=== PATIENT | female | born 1990 | race Caucasian/White ===

== ENCOUNTER 2016-12-12 10:00 | Inpatient (IN) | payer OTHER ==
[~2016-12-12] VITALS: Ht 149.9 cm; Wt 56.7 kg
[2016-12-12] VITALS (9 sets, daily range): BP systolic 110–124; BP diastolic 60–75
[~2016-12-12 10:00] MED LIST: ESOM40CA PO; FLUO40CA9 PO; IV RINGERS,LACTATED 1000ML 1,000 ML IV SCH; LIDOCAINE 1% 1 ML SYRINGE. ID PRN; MORPHINE SULFATE 2 MG/ML DISP.SYRIN. IV PRN; ONDA4TAB7 PO; ONDANSETRON PF 4 MG/2 ML VIAL. IV PRN; PROCHLORPERAZINE 10 MG/2 ML VIAL. IV PRN; fentaNYL PF VIAL 100 MCG/2 ML VIAL IV PRN
[2016-12-12] MEDS ORDERED: SCOPOLAMINE 1.5MG PATCH. TD ONE ×2 (10:50→11:00)
[2016-12-12] MEDS ORDERED: BUPIVAC MPF-EPI 0.5%-1:200000 30 ML VIAL. ONE (10:51)
[2016-12-12] MEDS ORDERED: GLUCAGON,HUMAN RECOMBINANT 1 MG/ML VIAL. ONE (10:51)
[2016-12-12] MEDS ORDERED: SURGICEL HEMOSTAT 4X8 EACH. ONE (10:51)
[2016-12-12] MEDS ORDERED: IOHEXOL 300 MG/ML 50 ML VIAL. ONE (10:51)
[2016-12-12 11:05] LABS: BASO % 0 % (0-3); EOS % 1 % (0-3); HEMOGLOBIN 10.3 g/dL (12.0-15.5); LYMPH # 2.7 x10^3/uL (1.0-4.8); LYMPH % 21 % (24-48); MEAN CORPUSCULAR HEMOGLOBIN 24 pg (25-35); MEAN CORPUSCULAR HGB CONC 31 g/dL (31-37); MEAN CORPUSCULAR VOLUME 78 fL (79-100); MONO % 5 % (0-9); NEUT % 74 % (31-73); PLATELET COUNT 370 x10^3/uL (140-400); RED BLOOD COUNT 4.26 x10^6/uL (3.50-5.40); RED CELL DISTRIBUTION WIDTH 18.8 % (11.5-14.5)
[2016-12-12] MEDS ORDERED: MIDAZOLAM HCL/PF 2 MG/2 ML VIAL. ONE (11:05)
[2016-12-12] MEDS ORDERED: ONDANSETRON PF 4 MG/2 ML VIAL. ONE (11:05)
[2016-12-12] MEDS ORDERED: LIDOCAINE 2% PF Vial for OR 5 ML VIAL. ONE (11:05)
[2016-12-12] MEDS ORDERED: PROPOFOL 20 ML IV ONE (11:05)
[2016-12-12] MEDS ORDERED: DEXAMETHASONE SOD PHOS 20 MG/5 ML VIAL. ONE (11:05)
[2016-12-12 11:06] LABS: CALCIUM 9.6 mg/dL (8.5-10.1); CREATININE 0.6 mg/dL (0.6-1.0); GFR 119.9; POTASSIUM 4.1 mmol/L (3.5-5.1)
[2016-12-12] MEDS ORDERED: fentaNYL PF VIAL 100 MCG/2 ML VIAL ONE (11:06)
[2016-12-12] MEDS ORDERED: ROCURONIUM 50 MG/5 ML VIAL. ONE (11:06)
[2016-12-12 11:08] LABS: NEG OBC UR NEG; POS OBC UR POS
[2016-12-12 11:12] LABS: ALBUMIN 4.3 g/dL (3.4-5.0); TOTAL BILIRUBIN 0.3 mg/dL (0.2-1.0)
[2016-12-12] MEDS ORDERED: ESMOLOL 100 MG/10 ML VIAL. IV ONE (11:49)
[2016-12-12] MEDS ORDERED: GLYCOPYRROLATE 1 MG/5 ML VIAL. ONE (12:17)
[2016-12-12] MEDS ORDERED: NEOSTIGMINE METHYLSULFATE 5 MG/5 ML SYRINGE. ONE (12:17)
[2016-12-12] MEDS ORDERED: KETOROLAC 30 MG/ML INJ FOR OR. INJ ONE (12:18)
--- NOTE | 2016-12-12 12:52 | RAD ---
Intraoperative cholangiogram, 3 views, 12/12/2016: History: Cholecystectomy Contrast has been injected into the cystic duct remnant. 44 seconds of fluoroscopy time was utilized. There is good flow of contrast into the duodenum at the ampulla. No filling defect is seen in the common duct to suggest a retained calculus. A small lucency in the cystic duct at the catheter insertion site is probably on a technical basis. No contrast extravasation is seen.
[2016-12-12] MEDS: fentaNYL PF VIAL 100 MCG/2 ML VIAL IV PRN ×3 (13:23→14:55)
[2016-12-12] MEDS: HYDROmorphone 2 MG/ML VIAL IV PRN ×6 (13:43→22:19)
--- NOTE | 2016-12-12 14:08 | PDOC ---
BRIEF OPERATIVE NOTE Date: Dec 12, 2016 Pre-Op Diagnosis symptomatic cholelithiasis Post-Op Diagnosis same Procedure Performed l/s cholecystectomy with cholangiograms Surgeon Carlos Anesthesia Type: General Blood Loss 20cc IV Fluid 1100cc Specimens Obtained GB Findings supple GB with multiple stones, normal grams Complications none Additional Remarks # [id number] LENNY RUFFIN MD Dec 12, 2016 14:08
--- NOTE | 2016-12-12 14:09 | DISCH ---
DISCHARGE INSTRUCTIONS Condition on Discharge Condition on Discharge: Stable Activity After Discharge Activity Instructions for Disc: Activity as tolerated, Avoid exertion Lifting Instructions after Dis: No heavy lifting Driving Instructions after Dis: Do not drive Diet after Discharge Diet after Discharge: Regular Wound Incision Care Wound/Incision Care: Ice to area for comfort Other wound/incision instructi: may shower Thursday Follow-Up Follow up with: Carlos next week LENNY RUFFIN MD Dec 12, 2016 14:09
--- NOTE | 2016-12-12 14:21 | OP ---
DATE OF SURGERY: 12/12/2016 PREOPERATIVE DIAGNOSIS: Symptomatic cholelithiasis. POSTOPERATIVE DIAGNOSIS: Symptomatic cholelithiasis. PROCEDURE: Laparoscopic cholecystectomy with cholangiogram. SURGEON: Jd Ruffin MD ANESTHESIA: General endotracheal. ESTIMATED BLOOD LOSS: 20 mL. IV FLUIDS: 1100. INDICATIONS: The patient is a 26-year-old young lady with cerebral palsy who has had persistent nausea, vomiting, and pain. Ultrasound shows stones. She is brought for cholecystectomy. OPERATIVE FINDINGS: The liver was smooth and sharp. The gallbladder was supple and contained multiple stones. It was enveloped in omental adhesions. Visual inspection of the remainder of the abdomen failed to reveal obvious abnormalities. DESCRIPTION OF PROCEDURE: The patient was brought to the Operating Suite, given a general endotracheal anesthetic. Florence catheter was placed to dependent drainage. The abdomen was prepped and draped in usual sterile fashion. An infraumbilical incision was infiltrated with local anesthetic, sharply incised, and a 5 mm Visiport was used to gain access into the abdominal cavity taking care to avoid injury to abdominal contents. Pneumoperitoneum was established. Camera was inserted, and inspection was carried out with results as noted above. With the table in reverse Trendelenburg rolled to the left, the epigastric, midclavicular, and lateral ports were placed under direct vision. The omental lap around the gallbladder was carefully freed with blunt and cautery dissection taking care to avoid injury to abdominal contents. Once this was done, the gallbladder was retracted superolaterally, and the cystic duct was exposed as well as the cystic artery. The cystic duct was clipped on the gallbladder side and opened for cholangiogram. Small stones and debris were milked from the cystic duct until we had a flow of bile. Cholangiograms were made. These showed some possible filling defects in the cystic duct and the tip of the catheter. Otherwise, unremarkable. Toward that end, the catheter was removed, and the duct was again milked and delivered. Small stones and debris were thought to be seen on the cholangiogram. Once good flow of bile out of the cystic duct was established, the duct was clipped x3 and divided taking care to avoid injury or compromise of the common duct. The cystic artery was isolated, clipped x2, and divided. The gallbladder was freed from the bed and placed in an EndoCatch bag. Hemostasis in the fossa was obtained with cautery and a small piece of Surgicel. A 19-Bengali round Hayder drain was brought through the epigastric port out the lateral ports, sewn to the skin with silk stitch, and left in the subhepatic space for postoperative drainage. Table was returned to level. Gallbladder was delivered through the epigastric incision. Epigastric incision was closed with interrupted 0 Vicryl suture. With intraabdominal pressure at 6 cm of water, no bleeding from the epigastric port site or from the midclavicular port site after its removal or from the drain site. Abdomen was decompressed. Camera was slowly removed. No bleeding was seen. Skin incisions were closed with subcuticular 4-0 Monocryl. Steri-Strips and sterile dressings were applied. Florence catheter was removed. The patient was awakened from her anesthetic and taken to the Recovery Room in satisfactory condition. JD RUFFIN MD DR: ELOY/julianna JOB#: [id number] / [id number]
[2016-12-12] MEDS ORDERED: 0.9 % SODIUM CHLORIDE 10 ML DISP.SYRIN. IV PRN (14:45)
[2016-12-12] MEDS ORDERED: diphenhydrAMINE 50 MG/ML VIAL IV PRN (14:45)
[2016-12-12] MEDS ORDERED: DEXTROSE 50% 25 GM / 50ML DISP.SYRIN. IV PRN (14:45)
[2016-12-12] MEDS ORDERED: ONDANSETRON PF 4 MG/2 ML VIAL. IV PRN (14:45)
[2016-12-12] MEDS ORDERED: POTASSIUM CL 20MEQ-0.45% NACL 1,000 ML IV SCH (15:30)
[2016-12-12] MEDS: diphenhydrAMINE HCL 25 MG CAPSULE PO PRN (16:02)
[2016-12-12] MEDS ORDERED: PANTOPRAZOLE 40 MG TABLET.DR. PO ONE (19:45)
[2016-12-12] MEDS: DOCUSATE SODIUM 100 MG CAPSULE. PO SCH (20:32)
[2016-12-12] MEDS: HYDROcodone/APAP 5/325MG 1 TAB TABLET PO PRN (20:33)
[2016-12-13] MEDS: HYDROcodone/APAP 5/325MG 1 TAB TABLET PO PRN ×3 (01:55→12:11)
[2016-12-13 03:00] VITALS: BP 100/55
[2016-12-13] MEDS: HYDROmorphone 2 MG/ML VIAL IV PRN ×2 (04:41→10:07)
[2016-12-13 07:00] VITALS: BP 102/55
[2016-12-13] MEDS ORDERED: PANTOPRAZOLE 40 MG TABLET.DR. PO SCH (07:30)
[2016-12-13] MEDS: diphenhydrAMINE HCL 25 MG CAPSULE PO PRN (08:17)
[2016-12-13] MEDS: DOCUSATE SODIUM 100 MG CAPSULE. PO SCH (08:17)
--- NOTE | 2016-12-13 08:45 | PDOC3 ---
Discharge Summary* Date of Admission: Dec 12, 2016 Date of Discharge: Dec 13, 2016 Admitting Diagnosis symptomatic cholelithiasis Final Diagnosis same Procedures l/s mata with grams Brief Hospital Course Ms. Davis is a 26 old female who presented with symptomatic stones. She underwent l/s mata and stayed overnight for pain and nausea control. Dismissed to home on her first POD Disposition/Orders: D/C to Home CONDITION AT DISCHARGE: Stable Diet: Regular Scheduled Esomeprazole Magnesium (Nexium Capsule), 1 CAP PO DAILY, (Reported) Fluoxetine Hcl (Prozac), 1 CAP PO DAILY, (Reported) Scheduled PRN Ondansetron Hcl (Zofran), 10 MG PO BID PRN for NAUSEA/VOMITING, (Reported) FOLLOW UP APPOINTMENT: in [place] office next Time Spent Total time spent with patient 10 minutes for coordination of care, counseling, and education. LENNY RUFFIN MD Dec 13, 2016 08:45
[2016-12-13] MEDS ORDERED: FLUoxetine HCL 20 MG CAPSULE PO SCH (09:00)
[2016-12-13] MEDS ORDERED: ENOXAPARIN 40 MG/0.4 ML SYRINGE. SQ SCH (09:00)
[2016-12-13 11:00] VITALS: BP 99/52
--- NOTE | 2016-12-15 11:57 | PATHOLOGY ---
PATHOLOGY REPORT * * * * * * * * FINAL DIAGNOSIS: Gallbladder sac with contents, cholecystectomy: - Moderate chronic cholecystitis with cholelithiasis. (SHA:; d/t: 12/15/16) REPORT ELECTRONICALLY SIGNED BY: Long Vasques M.D. DATE/TIME: 12/15/2016 11:56 * * * * * * * * GROSS PATHOLOGY: Received in formalin labeled "Riddhi Davis, gallbladder sac with contents," is a 6.7 x 2.6 x 1.8 cm, intact gallbladder with yellow gibson serosal surfaces. Opening the gallbladder reveals yellow red, velvety mucosa and an average wall thickness of 0.3 cm. Calculi are present and no masses are noted grossly. Manager Training sections from the body and fundus are submitted along with the proximal margin in cassette A1. (JPM; 12/12/16) INITIAL CPT CODE(S): A; 14840 Professional services performed [place] [place] [address] Technical services performed by [facility] at [address] [place] [address]. SPECIMEN(S) RECEIVED: A.Gallbladder sac with contents CLINICAL HISTORY: Symptomatic cholelithiasis PATIENT: RIDDHI DAVIS /AGE: 107/06/1990 (Age: 26) PATIENT #: [id number] ALT CASE #: SPECIMEN COLLECTION DATE: 12/12/2016 SPECIMEN RECEIVED DATE: 12/12/2016 [facility] - [address] [place] [address] - PHONE: [phone] * * * END OF REPORT * * *
== END 2016-12-13 15:00 | disposition home or self-care (01) | DRG 419 ==
LOC: SURG 10:00 → 4 NORTH 14:33
PROVIDERS: ADMIT Surgery; ATTEND Surgery
PROC: 0FT44ZZ Resection of Gallbladder, Percutaneous Endoscopic Approach (ICD-10-PCS; principal; 2016-12-13)
PROC: BF121ZZ Fluoroscopy of Gallbladder using Low Osmolar Contrast (ICD-10-PCS; 2016-12-13)
DX: K80.20 Calculus of gallbladder without cholecystitis without obstruction (principal); K66.0 Peritoneal adhesions (postprocedural) (postinfection); G80.9 Cerebral palsy, unspecified; Z79.899 Other long term (current) drug therapy
CPT/HCPCS: 36415; 74300; 80048; 81025; 82040; 82247; 85027; 88304; J0690; J0780; J1100; J1170; J1610; J1650; J1885; J2250; J2405; J2704; J2710; J3010; J3490; J7030; J7120; Q0163; Q9967

== ENCOUNTER → 2018-01-19 | Day surgery (SDC) | payer OTHER ==
[~2018-01-19] MED LIST changes: -ESOM40CA PO; -FLUO40CA9 PO; -IV RINGERS,LACTATED 1000ML 1,000 ML IV SCH; -LIDOCAINE 1% 1 ML SYRINGE. ID PRN; +LIDOCAINE 2% PF Vial for OR 5 ML VIAL.; -MORPHINE SULFATE 2 MG/ML DISP.SYRIN. IV PRN; -ONDA4TAB7 PO; -ONDANSETRON PF 4 MG/2 ML VIAL. IV PRN; -PROCHLORPERAZINE 10 MG/2 ML VIAL. IV PRN; +PROPOFOL 20 ML IV; -fentaNYL PF VIAL 100 MCG/2 ML VIAL IV PRN
[2018-01-19] MEDS: IV RINGERS,LACTATED 1000ML 1,000 ML IV (16:18)
== END | disposition home or self-care (01) ==
LOC: SURG 15:32
DX: K44.9 Diaphragmatic hernia without obstruction or gangrene (principal); K31.89 Other diseases of stomach and duodenum; F41.9 Anxiety disorder, unspecified; F31.9 Bipolar disorder, unspecified; K58.9 Irritable bowel syndrome, unspecified; K21.9 Gastro-esophageal reflux disease without esophagitis; Z87.01 Personal history of pneumonia (recurrent); Z87.891 Personal history of nicotine dependence; G80.8 Other cerebral palsy; Z79.899 Other long term (current) drug therapy; Z90.49 Acquired absence of other specified parts of digestive tract; Z98.890 Other specified postprocedural states; F12.90 Cannabis use, unspecified, uncomplicated; Z72.89 Other problems related to lifestyle; Z83.3 Family history of diabetes mellitus; Z82.49 Family history of ischemic heart disease and other diseases of the circulatory system; Z82.3 Family history of stroke
CPT/HCPCS: 43239; 88305; J2001; J2704

== ENCOUNTER → 2018-04-02 | Day surgery (SDC) | payer OTHER ==
[~2018-04-02] MED LIST changes: +BACL10TA PO; +CIPR500T PO; +DIVA-53 PO; +ESOM40CA PO; +FLUO40CA9 PO; +HYDROmorphone 2 MG/ML VIAL IV PRN; +IV RINGERS,LACTATED 1000ML 1,000 ML IV SCH; +LIDOCAINE 1% PF 2 ML VIAL. ID PRN; +LIDOCAINE 2% PF 2ML VIAL. ONE; -LIDOCAINE 2% PF Vial for OR 5 ML VIAL.; +METR250T11 PO; +MIRT15TA3 PO; +MORP15TA PO; +MORPHINE SULFATE 2 MG/ML VIAL. IV PRN; +ONDA4TAB7 PO; +PROCHLORPERAZINE 10 MG/2 ML VIAL. IV PRN; -PROPOFOL 20 ML IV; +PROPOFOL 40 ML IV ONE; +QUET25TA5 PO; +TRAM50TA PO; +fentaNYL PF VIAL 100 MCG/2 ML VIAL IV PRN
[2018-04-02 08:05] LABS: U PREG PATIENT NEGATIVE (NEG)
[2018-04-02 09:58] VITALS: BP 115/75
--- NOTE | 2018-04-02 22:31 | HP ---
ADMIT DATE: 04/02/2018 REFERRING PHYSICIAN: None. HISTORY OF PRESENT ILLNESS: A 27-year-old female whose past medical history is significant for cerebral palsy, irritable bowel syndrome, depression, anxiety, GERD, seen for worsening abdominal pain and constipation, diffuse in nature. She has had no improvement in her symptoms with a gluten-free diet with unrevealing biopsies reveals atrophy and increased intraepithelial lymphocytes. With continued symptoms, colonoscopy is recommended to further assess. PAST MEDICAL HISTORY: Cerebral palsy, spasticity, GERD, depression. ALLERGIES: FLU SHOT. MEDICATIONS: Include baclofen, divalproex, mirtazapine, morphine, and Seroquel. FAMILY AND SOCIAL HISTORY: She has had cholecystectomy and bilateral leg surgery. She is a social drinker, nonsmoker. FAMILY HISTORY: Significant for diabetes with grandmother, CVA with grandmother, and hypertension with grandmother. REVIEW OF SYSTEMS: Per records. PHYSICAL EXAMINATION: GENERAL: Reveals a well-nourished, well-developed female, who is alert, cooperative, in no acute distress. VITAL SIGNS: Temperature 99.5, pulse 89, respirations 20. HEENT: Normocephalic and atraumatic head. Pupils and extraocular muscles are not tested. Sclerae anicteric. NECK: Supple. LUNGS: Clear. CARDIOVASCULAR: Reveals S1, S2 without S3, S4 or appreciable murmur. ABDOMEN: Soft abdomen, normal bowel sounds without appreciable hepatosplenomegaly. EXTREMITIES: Reveals no cyanosis, clubbing or edema. IMPRESSION: Abdominal pain with constipation, most likely is multifactorial with inflammatory bowel disease, constipation in the differential. Hirschsprung disease, malignancy, recurrent endometriosis certainly are possible as well. Therefore, I recommend colonoscopy. If this is unrevealing, further consideration to small bowel series and laparoscopy would be pursued. TREVOR YUNG MD DR: JAYLEN/julianna JOB#: [id number] / [id number]
== END | disposition home or self-care (01) ==
LOC: ENDOS 07:33
PROVIDERS: ATTEND Internal Medicine Gastroenterology
DX: R19.4 Change in bowel habit (principal); K64.0 First degree hemorrhoids; F32.9 Major depressive disorder, single episode, unspecified; F41.9 Anxiety disorder, unspecified; K21.9 Gastro-esophageal reflux disease without esophagitis; Z72.89 Other problems related to lifestyle; Z90.49 Acquired absence of other specified parts of digestive tract; Z79.899 Other long term (current) drug therapy; Z98.890 Other specified postprocedural states
CPT/HCPCS: 45378; 81025; J2001; J2704

== ENCOUNTER 2019-04-28 14:59 | Emergency (ER) | payer MEDICAID, OTHER ==
[~2019-04-28] VITALS: Ht 149.9 cm; Wt 44.9 kg
[~2019-04-28 14:59] MED LIST changes: -HYDROmorphone 2 MG/ML VIAL IV PRN; -IV RINGERS,LACTATED 1000ML 1,000 ML IV SCH; -LIDOCAINE 1% PF 2 ML VIAL. ID PRN; -LIDOCAINE 2% PF 2ML VIAL. ONE; +METR-111 PO; -METR250T11 PO; -MORPHINE SULFATE 2 MG/ML VIAL. IV PRN; -PROCHLORPERAZINE 10 MG/2 ML VIAL. IV PRN; -PROPOFOL 40 ML IV ONE; -fentaNYL PF VIAL 100 MCG/2 ML VIAL IV PRN
--- NOTE | 2019-04-28 16:14 | PHYS DOC ---
Adult General Chief Complaint Chief Complaint: CONSTIPATION HPI HPI Patient is a 28 year old [female] who presents with [abdominal cramping and constipation. Patient reports she has not had a bowel movement for several w eeks, reports she had been seen increasing hospital 2 days ago, had been told that she just has a hemorrhoid, was not constipated at that time. Patient reports she has continued to eat normally, has been on antibiotics for a UTI, taking Keflex, but continues to have some abdominal discomfort. States it feels she has a bowling ball on her rectum. Does have a known history of prior constipation, cerebral palsy, and history of absorption problems with her colon. Caregiver states she is given patient several medications to help her have a bowel movement, but has had no success. Reports they contacted Dr. Hay who recommended they come to [place], to be evaluated.] Review of Systems Review of Systems Constitutional: Reports several day intermittent fever [] Respiratory: Denies cough or shortness of breath [] Cardiovascular: No additional information not addressed in HPI [] GI: Reports constant abdominal pain, cramping. Reports she feels nauseous because she has not had a bowel movement. Ports constipation. Denies diarrhea. Does report she has had some blood in her stools recently. [] : Denies dysuria or hematuria reports her suprapubic catheter has been producing the normal amount of urine, had been cloudy, is currently taking antibiotics for UTI [] Musculoskeletal: Denies back pain or joint pain [] Integument: Denies rash or skin lesions [] Neurologic: Denies headache, focal weakness or sensory changes [] Endocrine: Denies polyuria or polydipsia [] All other systems were reviewed and found to be within normal limits, except as documented in this note. Current Medications Current Medications Current Medications Medications (Trade) Dose Ordered Sig/Leeroy Start Time Stop Time Status Last Admin Dose Admin Ondansetron HCl (Zofran) 4 mg 1X ONCE 04/28/19 16:15 04/28/19 16:19 DC 04/28/19 16:50 4 MG Sodium Chloride 1,000 ml @ 1,000 mls/hr 1X ONCE 04/28/19 16:15 04/28/19 17:14 DC 04/28/19 16:50 1,000 MLS/HR Allergies Allergies Allergies Coded Allergies Type Severity Reaction Last Updated Verified Influenza Virus Vaccines Allergy Unknown Rash 04/28/19 Yes gluten Allergy Unknown 04/28/19 Yes iodine Allergy Unknown 04/28/19 Yes pneumococcal vaccine Allergy Unknown Rash 04/28/19 Yes red dye Allergy Unknown 04/28/19 Yes shellfish derived Allergy Unknown 04/28/19 Yes Physical Exam Physical Exam Constitutional: Well developed, well nourished, no acute distress, non-toxic appearance. [] Neck: Normal range of motion, no tenderness, supple, no stridor. [] Cardiovascular:Heart rate regular rhythm, no murmur [] Lungs & Thorax: Bilateral breath sounds clear to auscultation [] Abdomen: Bowel sounds diminished, higher pitched. Tender.no masses, no pulsatile masses. Suprapubic catheter noted in place. No lesions surrounding [] Skin: Warm, dry, no erythema, no rash. [] Back: No tenderness, no CVA tenderness. [] Extremities: No tenderness, no cyanosis, no clubbing, ROM intact her normal patient condition, no edema. [] Neurologic: Alert and oriented X 3, normal motor function, normal sensory function, no focal deficits noted. [] Psychologic: Affect normal, judgement normal, mood normal. [] Rectal exam - chaperoned by RN, no masses, no lesions palpated. no stool noted to digit on deep insertion. No blood noted. Current Patient Data Vital Signs Vital Signs Date Time Temp Pulse Resp B/P (MAP) Pulse Ox O2 Delivery O2 Flow Rate FiO2 04/28/19 15:29 97.8 98 20 127/61 (83) 95 Room Air 97.8 Lab Values Laboratory Tests Test 04/28/19 16:40 White Blood Count 11.1 x10^3/uL (4.0-11.0) H Red Blood Count 3.80 x10^6/uL (3.50-5.40) Hemoglobin 12.1 g/dL (12.0-15.5) Hematocrit 36.1 % (36.0-47.0) Mean Corpuscular Volume 95 fL (79-100) Mean Corpuscular Hemoglobin 32 pg (25-35) Mean Corpuscular Hemoglobin Concent 33 g/dL (31-37) Red Cell Distribution Width 13.6 % (11.5-14.5) Platelet Count 251 x10^3/uL (140-400) Neutrophils (%) (Auto) 67 % (31-73) Lymphocytes (%) (Auto) 25 % (24-48) Monocytes (%) (Auto) 5 % (0-9) Eosinophils (%) (Auto) 2 % (0-3) Basophils (%) (Auto) 1 % (0-3) Neutrophils # (Auto) 7.4 x10^3/uL (1.8-7.7) Lymphocytes # (Auto) 2.8 x10^3/uL (1.0-4.8) Monocytes # (Auto) 0.5 x10^3/uL (0.0-1.1) Eosinophils # (Auto) 0.2 x10^3/uL (0.0-0.7) Basophils # (Auto) 0.1 x10^3/uL (0.0-0.2) Sodium Level 143 mmol/L (136-145) Potassium Level 3.9 mmol/L (3.5-5.1) Chloride Level 106 mmol/L (98-107) Carbon Dioxide Level 24 mmol/L (21-32) Anion Gap 13 (6-14) Blood Urea Nitrogen 18 mg/dL (7-20) Creatinine 0.5 mg/dL (0.6-1.0) L Estimated GFR (Cockcroft-Gault) 145.9 BUN/Creatinine Ratio 36 (6-20) H Glucose Level 85 mg/dL (70-99) Lactic Acid Level 1.0 mmol/L (0.4-2.0) Calcium Level 9.3 mg/dL (8.5-10.1) Total Bilirubin 0.2 mg/dL (0.2-1.0) Aspartate Amino Transferase (AST) 19 U/L (15-37) Alanine Aminotransferase (ALT) 31 U/L (14-59) Alkaline Phosphatase 65 U/L (46-116) Total Protein 7.6 g/dL (6.4-8.2) Albumin 4.1 g/dL (3.4-5.0) Albumin/Globulin Ratio 1.2 (1.0-1.7) Laboratory Tests 04/28/19 16:40 Laboratory Tests 04/28/19 16:40 EKG EKG [] Radiology/Procedures Radiology/Procedures Redemonstrated moderate hiatal hernia. The lung bases are unremarkable. No newly seen abnormality of the liver, pancreas, spleen, adrenal glands or kidneys. The gallbladder is surgically absent. Unchanged prominence of the common bile duct which is not unexpected given prior cholecystectomy. A suprapubic catheter is newly identified from the prior. Unremarkable uterus and adnexa given patient age. Fluid distention of the proximal colon. No pericolonic inflammatory changes are appreciated. The appendix is segmentally visualized and unremarkable where seen. Small bowel caliber is within normal limits. No discrete abnormality of the stomach. No free air. No large volume free fluid about the abdomen or pelvis. The body wall soft tissues are unremarkable and there are no abnormal findings along the suprapubic catheter tract. No newly seen osseous abnormality with a redemonstrated chronic unilateral pars defect on the right at L3. Impression: 1. No acute abnormality is seen throughout the abdomen or pelvis taking into consideration the absence of intravenous or oral contrast. There is fluid distention of the proximal colon suggesting a diarrheal state however no pericolonic inflammatory changes or abnormal wall thickening are readily apparent to suggest a colitis. The appendix is unremarkable. 2. Interval placement of a suprapubic catheter without complicating features. 3. Redemonstrated moderate-sized hiatal hernia. Electronically signed by: TIP SAN MD (04/28/2019 4:50 PM) [facility] [] Course & Med Decision Making Course & Med Decision Making Pertinent Labs and Imaging studies reviewed. (See chart for details) [Discussed findings with patient and caregivers. Caregivers discussed concern for patient having a colostomy sometime, due to her continued bowel problems. Patient becomes irritated that she continues to have normal findings in ER, and that she is tired of not finding anything. Advise patient of continued need to follow up with GI. She has seen Aj several times in the past. Discussed case with Dr Rocha, recommends patient follow up in clinic, no need for any urgent interventions now.] Patient and family in agreement, will make appointment with Aj. States she doesnt think the ER is helping her, advise patient she needs to continue following up with speciailst as needed. Dragon Disclaimer Dragon Disclaimer This electronic medical record was generated, in whole or in part, using a voice recognition dictation system. Departure Departure Impression: Primary Impression: Abdominal pain Additional Impression: Constipation Disposition: 01 HOME, SELF-CARE Condition: STABLE Referrals: UNKNOWN PCP NAME (PCP) Patient Instructions: Abdominal Pain Additional Instructions: As we discussed, make sure you follow-up with Dr. Rocha and make the appointment this week. Continue your regular medications. Problem Qualifiers Primary Impression: Abdominal pain Abdominal location: generalized Qualified Codes: R10.84 - Generalized abdominal pain Additional Impression: Constipation Constipation type: unspecified constipation type Qualified Codes: K59.00 - Constipation, unspecified FABIAN ELDER APRN Apr 28, 2019 16:14
[2019-04-28] MEDS ORDERED: ONDANSETRON PF 4 MG/2 ML VIAL. IVP ONE (16:15)
[2019-04-28] MEDS ORDERED: IV NORMAL SALINE 1000ML BAG 1,000 ML IV ONE (16:15)
--- NOTE | 2019-04-28 16:53 | RAD ---
Study: CT abdomen and pelvis without contrast Indication: Abdominal pain. Constipation. Comparison: Most recently on 02/24/2019 Technique: Helical CT imaging performed of the abdomen and pelvis without the use of intravenous contrast. Sagittal and coronal reformats were obtained. One or more of the following individualized dose reduction techniques were utilized for this examination: 1. Automated exposure control 2. Adjustment of the mA and/or kV according to patient size 3. Use of iterative reconstruction technique. Findings: Redemonstrated moderate hiatal hernia. The lung bases are unremarkable. No newly seen abnormality of the liver, pancreas, spleen, adrenal glands or kidneys. The gallbladder is surgically absent. Unchanged prominence of the common bile duct which is not unexpected given prior cholecystectomy. A suprapubic catheter is newly identified from the prior. Unremarkable uterus and adnexa given patient age. Fluid distention of the proximal colon. No pericolonic inflammatory changes are appreciated. The appendix is segmentally visualized and unremarkable where seen. Small bowel caliber is within normal limits. No discrete abnormality of the stomach. No free air. No large volume free fluid about the abdomen or pelvis. The body wall soft tissues are unremarkable and there are no abnormal findings along the suprapubic catheter tract. No newly seen osseous abnormality with a redemonstrated chronic unilateral pars defect on the right at L3. Impression: 1. No acute abnormality is seen throughout the abdomen or pelvis taking into consideration the absence of intravenous or oral contrast. There is fluid distention of the proximal colon suggesting a diarrheal state however no pericolonic inflammatory changes or abnormal wall thickening are readily apparent to suggest a colitis. The appendix is unremarkable. 2. Interval placement of a suprapubic catheter without complicating features. 3. Redemonstrated moderate-sized hiatal hernia. Electronically signed by: TIP SAN MD (04/28/2019 4:50 PM) [facility]
[2019-04-28 16:54] LABS: BASO # 0.1 x10^3/uL (0.0-0.2); BASO % 1 % (0-3); EOS # 0.2 x10^3/uL (0.0-0.7); EOS % 2 % (0-3); HEMATOCRIT 36.1 % (36.0-47.0); HEMOGLOBIN 12.1 g/dL (12.0-15.5); LYMPH # 2.8 x10^3/uL (1.0-4.8); LYMPH % 25 % (24-48); MEAN CORPUSCULAR HEMOGLOBIN 32 pg (25-35); MEAN CORPUSCULAR HGB CONC 33 g/dL (31-37); MEAN CORPUSCULAR VOLUME 95 fL (79-100); MONO # 0.5 x10^3/uL (0.0-1.1); MONO % 5 % (0-9); NEUT # 7.4 x10^3/uL (1.8-7.7); NEUT % 67 % (31-73); PLATELET COUNT 251 x10^3/uL (140-400); RED CELL DISTRIBUTION WIDTH 13.6 % (11.5-14.5); WHITE BLOOD COUNT 11.1 x10^3/uL (4.0-11.0)
[2019-04-28 17:11] LABS: CALCIUM 9.3 mg/dL (8.5-10.1); CREATININE 0.5 mg/dL (0.6-1.0); GFR 145.9; POTASSIUM 3.9 mmol/L (3.5-5.1)
[2019-04-28 17:17] LABS: ALBUMIN 4.1 g/dL (3.4-5.0); ALBUMIN/GLOBULIN RATIO 1.2 (1.0-1.7); TOTAL BILIRUBIN 0.2 mg/dL (0.2-1.0); TOTAL PROTEIN 7.6 g/dL (6.4-8.2)
[2019-04-28 18:06] VITALS: BP 131/73
== END 2019-04-28 18:25 | disposition home or self-care (01) ==
LOC: ER 14:59
DX: K59.00 Constipation, unspecified (principal); R10.84 Generalized abdominal pain; K92.1 Melena; R11.0 Nausea; Z88.8 Allergy status to other drugs, medicaments and biological substances; Z91.013 Allergy to seafood; Z88.7 Allergy status to serum and vaccine; Z91.041 Radiographic dye allergy status
CPT/HCPCS: 36415; 74176; 80053; 83605; 85025; 96374; 99285; J2405; J7030